=== PATIENT | male | born 1995 | race Caucasian/White ===

== ENCOUNTER 2020-11-16 14:39 | Emergency (ER) | payer OTHER ==
[~2020-11-16] VITALS: Ht 188 cm; Wt 81.6 kg
[~2020-11-16 14:39] MED LIST: LEVE750T4 PO
[2020-11-16 15:00] VITALS: BP 135/72
[2020-11-16] MEDS ORDERED: predniSONE 20 MG TABLET ONE (15:06)
[2020-11-16] MEDS ORDERED: AMOX/CLAVULANATE 875 MG TABLET ONE (15:06)
[2020-11-16] MEDS: predniSONE 20 MG TABLET PO ONE (15:09)
[2020-11-16] MEDS: AMOX/CLAVULANATE 875 MG TABLET PO ONE (15:09)
== END 2020-11-16 15:13 | disposition home or self-care (01) ==
LOC: ER 14:52
DX: R22.0 Localized swelling, mass and lump, head (principal); Z98.890 Other specified postprocedural states; Z79.899 Other long term (current) drug therapy
CPT/HCPCS: 99283; J7512

== ENCOUNTER 2020-12-29 22:29 | Emergency (ER) | payer OTHER ==
[~2020-12-29] VITALS: Ht 188 cm; Wt 74.8 kg
--- NOTE | 2020-12-29 22:45 | NUR ---
BIBMOTHER FROM HOME TO ER BED 4. AAOX4. NOT IN RESP DISTESS, BREATHING EVEN AND UNLABORED. AMBULATORY. BROUGHT IN BY MOTHER FOR A WITNESSED SEIZURE. PER MOTHER SEIZURE LASTED 4MIN, DESCRIBED PARTIAL COMPLEX SEIZURE. PT WAS ASSISTED TO THE FLOOR. UNKNOWN HEAD TRAUMA, NO VISUAL INJURY NOTED. PER MOTHER, PT'S LAST SEIZURE WAS 3 YEARS AGO. PT IS NOT ON MEDS NOR HAVENT SEEN THE NEUROLOGIST FOR THE PAST 3 YRS. PT IS PLACED ON SEIZURE PRECAUTION. WAS AT THE BEDSIDE FOR EVAL. ORDERS RECEIVED
--- NOTE | 2020-12-29 23:33 | NUR ---
returned from ct
[2020-12-29 23:53] LABS: BASOPHILS % (AUTO) 0.3 % (0.0-2.0); EOSINOPHILS % (AUTO) 0.4 % (0.0-6.0); HEMATOCRIT 48 % (39-51); HEMOGLOBIN 16.6 g/dL (13.5-17.5); LYMPHOCYTES # (AUTO) 1.2 /CMM (0.8-4.8); LYMPHOCYTES % (AUTO) 13.8 % (20.0-44.0); MEAN CORPUSCULAR HGB CONC 34 g/dl (31.0-36.0); MEAN CORPUSCULAR VOLUME 87 fL (80-96); MONOCYTES # (AUTO) 0.5 /CMM (0.1-1.30); MONOCYTES % (AUTO) 5.1 % (2.0-12.0); NEUTROPHILS # (AUTO) 7.1 /CMM (1.8-8.9); NEUTROPHILS % (AUTO) 80.4 % (43.0-81.0); PLATELET COUNT (AUTO) 232 /CMM (150-450); RED BLOOD CELL COUNT(AUTO) 5.52 MIL/uL (4.5-6.0); WHITE BLOOD COUNT (AUTO) 8.8 K/uL (4.3-11.0)
[2020-12-30 00:08] LABS: CALCIUM, SERUM 9.1 mg/dL (8.5-10.1); CARBON DIOXIDE 28 mmol/L (21-32); CHLORIDE 102 mmol/L (98-107); CREATININE 1.2 mg/dL (0.6-1.3); GLUCOSE 106 mg/dL (74-106); POTASSIUM 3.5 mmol/L (3.5-5.1); SODIUM SERUM 140 mmol/L (136-145); UREA NITROGEN, BLOOD 17 mg/dL (7-18)
[2020-12-30 00:15] LABS: ALANINE AMINOTRANSFERASE 24 U/L (12-78); ALBUMIN 4.4 g/dL (3.4-5.0); ALCOHOL, BLOOD < 3 mg/dL (0-0); ALKALINE PHOSPHATASE 116 U/L (46-116); ASPARTATE AMINOTRANSFERASE 20 U/L (15-37); BILIRUBIN,DIRECT 0.1 mg/dL (0.0-0.2); BILIRUBIN,TOTAL 0.5 mg/dL (0.2-1.0); TOTAL PROTEIN, SERUM 7.7 g/dL (6.4-8.2)
[2020-12-30 00:30] LABS: BILIRUBIN,URINE NEGATIVE (NEGATIVE); COLOR,URINE YELLOW (YELLOW); LEUKOCYTE ESTERASE ,URINE NEGATIVE (NEGATIVE); NITRITE, URINE NEGATIVE (NEGATIVE); PH,URINE 5.5 (5.0-8.0); PROTEIN,URINE TRACE mg/dl (NEGATIVE); UGLUCOSE NEGATIVE (NEGATIVE); UROBILINOGEN,URINE 0.2 EU/dL (0.2)
[2020-12-30 00:33] LABS: BACTERIA,URINE None seen /HPF (None Seen); RBC,URINE 0-2 /HPF (0-2); SQUAMOUS EPITHELIAL CELL,UR Few /HPF (None Seen); WBC,URINE 0-2 /HPF (0-3)
--- NOTE | 2020-12-30 00:37 | NUR ---
Patient discharged to home in stable condition. Written and verbal after care instructions given. Patient verbalizes understanding of instruction.
--- NOTE | 2020-12-30 00:37 | NUR ---
IV removed. Catheter intact and site benign. Pressure and 4x4 applied to site. No bleeding noted.
--- NOTE | 2020-12-30 00:38 | NUR ---
MOTHER DRIVING PATIENT HOME.
[2020-12-30 01:17] VITALS: BP 119/75
== END 2020-12-30 00:38 | disposition home or self-care (01) ==
LOC: ER 22:29
DX: G40.909 Epilepsy, unspecified, not intractable, without status epilepticus (principal); F10.10 Alcohol abuse, uncomplicated; F17.200 Nicotine dependence, unspecified, uncomplicated; Y90.0 Blood alcohol level of less than 20 mg/100 ml; Z98.890 Other specified postprocedural states; Z79.899 Other long term (current) drug therapy
CPT/HCPCS: 36415; 70450-TC; 71045-TC; 80048-TC; 80076-TC; 81001; 82962-TC; 85025-TC; 85730-TC; G0480

== ENCOUNTER 2021-04-11 17:54 | Emergency (ER) | payer OTHER ==
[~2021-04-11] VITALS: Ht 188 cm; Wt 76.2 kg
[2021-04-11 18:08] VITALS: BP 132/75
[2021-04-11] MEDS ORDERED: TDAP [DIPH/PERTUSSIS/TET] 0.5 ML VIAL IM ONE (18:39)
[2021-04-11] MEDS: TDAP [DIPH/PERTUSSIS/TET] 0.5 ML VIAL IM ONE (18:47)
[2021-04-11] MEDS ORDERED: LIDOCAINE 1%-EPI 1:100,000 20 ML VIAL ONE (18:48)
[2021-04-11] MEDS ORDERED: BACI30OI9 TP (19:32)
--- NOTE | 2021-04-11 19:39 | NUR ---
WOUND CARE PROVIDED AND AREA WAS COVERED W/ DD. PT IS MEDICALLY CLEAR FOR D/C Patient discharged to home in stable condition. Rx and Written and verbal after care instructions given. Patient verbalizes understanding of instruction.
== END 2021-04-11 19:40 | disposition home or self-care (01) ==
LOC: EDUNIT# 17:54 → ER 17:57
DX: S01.111A Laceration without foreign body of right eyelid and periocular area, initial encounter (principal); G40.909 Epilepsy, unspecified, not intractable, without status epilepticus; F10.10 Alcohol abuse, uncomplicated; F17.200 Nicotine dependence, unspecified, uncomplicated; Y90.9 Presence of alcohol in blood, level not specified; Z98.890 Other specified postprocedural states; Z79.899 Other long term (current) drug therapy; W01.0XXA Fall on same level from slipping, tripping and stumbling without subsequent striking against object, initial encounter; Y93.89 Activity, other specified; Y92.89 Other specified places as the place of occurrence of the external cause; Y99.8 Other external cause status
CPT/HCPCS: 12013; 90471; 90715; 99283; A6403; J3490

== ENCOUNTER 2021-04-14 19:33 | Emergency (ER) | payer OTHER ==
[~2021-04-14] VITALS: Ht 190.5 cm; Wt 76.2 kg
[2021-04-14 19:33] VITALS: BP 113/80
[~2021-04-14 19:33] MED LIST changes: +BACI30OI9 TP
== END 2021-04-14 19:55 | disposition home or self-care (01) ==
LOC: ER 19:33
DX: S01.81XD Laceration without foreign body of other part of head, subsequent encounter (principal); Z98.890 Other specified postprocedural states; Z79.899 Other long term (current) drug therapy; X58.XXXD Exposure to other specified factors, subsequent encounter

== ENCOUNTER 2021-04-17 17:06 | Emergency (ER) | payer OTHER ==
[~2021-04-17] VITALS: Ht 188 cm; Wt 74.8 kg
[2021-04-17 17:09] VITALS: BP 122/81
--- NOTE | 2021-04-17 17:10 | NUR ---
The patient bibs for c/o right eyebrow suture removal. Denies pain. Will continue to monitor the patient.
--- NOTE | 2021-04-17 17:35 | NUR ---
Patient discharged to home in stable condition. Written and verbal after care instructions given. Patient verbalizes understanding of instruction.
== END 2021-04-17 17:35 | disposition home or self-care (01) ==
LOC: ER 17:06
DX: S01.111D Laceration without foreign body of right eyelid and periocular area, subsequent encounter (principal); G40.909 Epilepsy, unspecified, not intractable, without status epilepticus; F10.10 Alcohol abuse, uncomplicated; F17.200 Nicotine dependence, unspecified, uncomplicated; Y90.9 Presence of alcohol in blood, level not specified; Z98.890 Other specified postprocedural states; Z79.899 Other long term (current) drug therapy; X58.XXXD Exposure to other specified factors, subsequent encounter